=== PATIENT | male | born 1965 | race African-American/Black ===

== ENCOUNTER 2019-03-02 01:08 | Emergency (ER) | payer OTHER ==
[~2019-03-02 01:08] MED LIST: Naloxone Nasal Spray* 4 MG/0.1 ML NASAL.SPR INTRANASAL ONE
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
[2019-03-02 01:59] VITALS: BP 103/66
--- OUTSIDE RECORDS SUMMARY | 2019-03-02 02:09 | XMS REPORT | Continuity of Care Document ---
:1965 External Reference #:[id number] Author Name Edvin Madrigal NP (transmitted by agent of provider Guerline Leigh) Address [address], [place] [address] Care Team Providers Name Role Phone Benny Ko MD - Gastroenterology Care Team Information Staffing Branch Manager Viktoriya Pearson M.D. - Family Medicine Care Team Information Staffing Branch Manager [phone] Problems Active Problems Provider Date Low back pain [place] M.D. Onset: 11/07/2016 Knee pain Fest[place] M.D. Onset: 11/07/2016 Arthralgia of the ankle and/or foot Festus River M.D. Onset: 11/07/2016 Obesity Festus River M.D. Onset: 11/07/2016 Tobacco user [place] M.D. Onset: 12/10/2016 Social History Type Date Description Comments Sex Unknown ETOH Use Occasionally consumes 1 beer alcohol Tobacco Use Start: 03/10/84 Light tobacco smoker (10 or fewer cigarettes/day) Recreational Drug Use Denies Drug Use occ THC, which helps alleviate pain Smoking Status Reviewed: Light tobacco smoker (01/21/19 or fewer cigarettes/day) Allergies, Adverse Reactions, Alerts Description No Known Drug Allergies Medications Active Medications SIG Qnty Indications Ordering Date Provider Gabapentin 1 by mouth twice a 90caps G47.00 Edvin Madrigal NP 01/21/2019 300mg day. If tolerated Capsules after a week increase to one capsule three times daily. Naproxen 1 tablet with food 60tabs M54.5 Edvin Madrigal NP 01/21/2019 500mg by mouth twice a Tablets day Baclofen take 1/2-1 tab 60tabs M54.5 Edvin Madrigal NP 01/21/2019 10mg Tablets every 8 hours as needed for muscle spasm Blood Pressure bp machine for home bell Rodriugez MD 05/18/2018 Monitor Digital bp monitoring [facility] Amlodipine Besylate 1 by mouth every 90tabs I10 Viktoriya Pearson MD 05/08/2018 day 5mg Tablets Sildenafil Citrate half tab one hour 6tabs N52.9 Viktoriya Pearson MD 2017 before intercourse 100mg Tablets Ketoconazole apply to scalp and 240ml Viktoriya Pearson MD 02/23/2018 2% skin for 15 min Shampoo then wash off in shower, 2 x/week Back Support use as directed dx: 1mukesh M54.5 Festus 12/10/2016 [facility] m54.5 lower back [place] pain History Medications Gabapentin take 1-3 capsules 60caps G47.00 Edvin Madrigal NP 10/29/2018 - 100mg by mouth at night 01/21/2019 Capsules Medications Administered in Office Medication SIG Qnty Indications Ordering Provider Date PPD Jeanie Marker, RPA-C 05/08/2018 Injection Immunizations CPT Code Status Date Vaccine Lot # [id number] Given 01/07/2018 Influenza Virus Vaccine, Quadrivalent, Split, Preservative Free Vital Signs Date Vital Result Comment 01/21/2019 4:06pm Height 67 inches 5'7" Weight 203.00 lb Heart Rate 92 /min BP Systolic 106 mmHg BP Diastolic 70 mmHg Body Temperature 97.3 F O2 % BldC Oximetry 97 % BMI (Body Mass Index) 31.8 kg/m2 10/29/2018 2:51pm Height 67 inches 5'7" Weight 192.00 lb Heart Rate 84 /min BP Systolic 123 mmHg BP Diastolic 86 mmHg Body Temperature 98.0 F O2 % BldC Oximetry 94 % BMI (Body Mass Index) 30.1 kg/m2 Results Description No Information Available Procedures Description No Information Available Medical Devices Description No Information Available Encounters Type Date Location Provider Dx Diagnosis Office Visit 10/29/2018 2:40p Administrative Medical Director Internal Edvin Madrigal NP M54.5 Low back pain Medicine - [facility] G47.00 Insomnia, unspecified M25.562 Pain in left knee Assessments Date Code Description Provider 01/21/2019 M54.5 Low back pain Edvin Madrigal, HOSPICE CASE MANAGER 01/21/2019 M25.562 Pain in left knee Edvin Madrigal, HOSPICE CASE MANAGER 10/29/2018 M54.5 Low back pain Edvin Madrigal, HOSPICE CASE MANAGER 10/29/2018 G47.00 Insomnia, unspecified Edvineliel Madrigal, HOSPICE CASE MANAGER 10/29/2018 M25.562 Pain in left knee Edvineliel Madrigal, HOSPICE CASE MANAGER Plan of Treatment 01/21/2019 - Edvin Madrigal, NPM54.5 Low back painNew Medication:Naproxen 500 mg - 1 tablet with food by mouth twice a dayBaclofen 10 mg - take 1/2-1 tab every 8 hours as needed for muscle spasmComments:You can increase the gabapentin to 300mg twice daily. If tolerated after a week you can increase to 300mg three times daily.Stop taking the Meloxicam and start taking the Naproxen twice daily. You can take the muscle relaxant as needed. This may make you tired.Referral:Betsy Marley MD, Surgery,[id number] Pain in left kneeComments:If you decide you would like the referral to the resource management specialist please let me know. Functional Status Description No Information Available Mental Status Description No Information Available Referrals Refer to Reason for Referral Status Appt Date Betsy Marley MD Created [address] [place] [phone] Rashaad Maravilla MD OT Sent 11/30/[address] [place] [id number] [phone]
== END 2019-03-02 01:55 | disposition home or self-care (01) ==
LOC: ED 01:08
DX: T50.901A Poisoning by unspecified drugs, medicaments and biological substances, accidental (unintentional), initial encounter (principal); Y92.9 Unspecified place or not applicable; F17.210 Nicotine dependence, cigarettes, uncomplicated
CPT/HCPCS: 99283; A9270-GY

== ENCOUNTER 2019-03-14 02:49 | Emergency (ER) | payer OTHER ==
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
[2019-03-14 04:43] VITALS: BP 102/73
== END 2019-03-14 04:44 | disposition home or self-care (01) ==
LOC: ED 02:49
DX: S20.212A Contusion of left front wall of thorax, initial encounter (principal); F17.210 Nicotine dependence, cigarettes, uncomplicated; Y35.813A Legal intervention involving manhandling, suspect injured, initial encounter; Y92.9 Unspecified place or not applicable
CPT/HCPCS: 71046; 99282